=== PATIENT | male | born 1950 | race Hispanic/Latino ===

== ENCOUNTER 2023-01-02 07:43 | Emergency (ER) | payer MEDICARE ==
[~2023-01-02] VITALS: Ht 175.3 cm; Wt 106.1 kg
[2023-01-02 08:02] VITALS: O2SAT 99
[2023-01-02 08:39] LABS: CLARITY,URINE CLEAR (CLEAR); COLOR,URINE YELLOW (YELLOW); LEUKOCYTE ESTERASE ,URINE NEGATIVE (NEGATIVE); NITRITE,URINE NEGATIVE (NEGATIVE); PROTEIN,URINE DIPSTICK TRACE (NEGATIVE)
[2023-01-02 08:40] LABS: KETONES,URINE NEGATIVE (NEGATIVE); URINE UROBILINOGEN 0.2 mg/dL (0.2 - 1)
[2023-01-02 08:42] LABS: BACTERIA,URINE MODERATE /HPF; EPITHELIAL CELLS,URINE FEW /LPF
[2023-01-02 08:53] LABS: URIC ACID CRYSTALS,URINE RARE (FEW)
== END 2023-01-02 12:53 | disposition home or self-care (01) ==
LOC: ER 07:51
DX: R19.05 Periumbilic swelling, mass or lump (principal); K40.90 Unilateral inguinal hernia, without obstruction or gangrene, not specified as recurrent; I10 Essential (primary) hypertension; E78.5 Hyperlipidemia, unspecified
CPT/HCPCS: 76870; 81001; 87086; 93976; 99283